=== PATIENT | female | born 1980 | race Caucasian/White ===

== ENCOUNTER 2016-09-22 10:16 | Observation (INO) | payer OTHER ==
[~2016-09-22] VITALS: Ht 167.6 cm; Wt 84.3 kg
[~2016-09-22 10:16] MED LIST: FLEXERIL10 MG PO; NAPROSYN500 MG PO; ULTRAM50 MG PO
[2016-09-22 11:15] LABS: EOSINOPHIL (%) 2.4 % (0-5); EOSINOPHIL COUNT 0.2 K/uL (0-0.3); HEMATOCRIT 45.6 % (36.0-46.0); IMMATURE GRANULOCYTE (%) 0.3 % (0.0-0.7); INSTRUMENT ABS NEUTROPHIL CT 4.3 K/uL; LYMPHOCYTE COUNT 1.7 K/uL (1.0-2.8); MCH 30.4 PG (29.0-34.0); MCHC 33.3 G/DL (30.0-36.0); MCV 91.2 FL (83-99); MEAN PLAT.VOLUME 10.3 uM^3 (9.5-12.4); MONOCYTE COUNT 0.4 K/uL (0-0.8); NEUTROPHIL (%) 65.5 % (45-76); NEUTROPHIL COUNT 4.3 K/uL (1.8-6.4); PLATELET COUNT 267 K/uL (156-360); RBC DIS.WIDTH-CV 12.2 % (11.8-14.6); RBC DIS.WIDTH-SD 40.6 % (39-53); WHITE BLOOD COUNT 6.6 K/uL (4.1-10.2)
[2016-09-22 11:24] LABS: CHLORIDE 109 mEq/L (99-109); POTASSIUM 3.9 mEq/L (3.7-5.4); SODIUM 142 mEq/L (136-147)
[2016-09-22 11:26] LABS: GLUCOSE 83 mg/dL (70-99)
[2016-09-22 11:27] LABS: ANION GAP 13 MEQ/L (2-14); D-DIMER ELISA 0.57 mg/L FEU (< 0.57)
[2016-09-22 11:28] LABS: TOTAL BILIRUBIN 0.4 mg/dL (0.0-1.0)
[2016-09-22 11:29] LABS: ALKALINE PHOSPHATASE 65 IU/L (3-129)
[2016-09-22 11:30] LABS: GFR ESTIMATE (CALCULATED) > 59 mL/min/
[2016-09-22 11:31] LABS: UREA NITROGEN (BUN) 13 mg/dL (9-23)
[2016-09-22 11:35] LABS: TROP-I INTERPRETATION NEGATIVE; TROPONIN-I < 0.01 ng/mL (0.0-0.30)
[2016-09-22 11:41] LABS: QUANTITATIVE HCG < 4.0 MIU/ML
[2016-09-22] MEDS ORDERED: LO LOESTRIN FE1 EACH PO (14:05)
[2016-09-22] MEDS ORDERED: ZYRTEC10 M3 PO (14:05)
[2016-09-22] MEDS ORDERED: AMLODIPINE BES2.5 MG PO (14:05)
[2016-09-22 16:32] VITALS: BP 140/87; BP 143/85
[2016-09-22 16:33] VITALS: BP 142/92
[2016-09-22 17:45] LABS: TROP-I INTERPRETATION NEGATIVE; TROPONIN-I < 0.01 ng/mL (0.0-0.30)
[2016-09-22 18:38] LABS: Estimated Average Glucose 94 mg/dL (70-123); HEMOGLOBIN A1c (GLYCOHEMOGLOB) 4.9 % HGB (Below 5.7)
[2016-09-22 19:18] VITALS: BP 139/91
[2016-09-22 21:16] LABS: ADD MIUA? YES; BILIRUBIN NEGATIVE; BLOOD SMALL; COLOR YELLOW ((YELLOW)); GLUCOSE (STRIP) NEGATIVE; KETONES 20; LEUKOCYTES NEGATIVE; NITRITE NEGATIVE; PROTEIN (STRIP) NEGATIVE; UROBILINOGEN 0.2 MG/DL (0.2-1.0)
[2016-09-22 21:37] LABS: BACTERIA RARE /HPF; EPITHELIAL CELLS RARE /HPF; MUCUS NONE SEEN /LPF; UCUL ADDED? NO; WHITE BLOOD CELLS 0-5 /HPF (0-5)
[2016-09-22 23:00] VITALS: BP 138/89
[2016-09-23] VITALS (8 sets, daily range): BP systolic 123–140; BP diastolic 75–92
[2016-09-23 00:03] LABS: TROP-I INTERPRETATION NEGATIVE; TROPONIN-I < 0.01 ng/mL (0.0-0.30)
[2016-09-23 05:50] LABS: ANION GAP 6 MEQ/L (2-14); CHLORIDE 109 MEQ/L (99-109); GFR ESTIMATE (CALCULATED) > 59 mL/min/; GLUCOSE 84 mg/dL (70-99); POTASSIUM 3.8 MEQ/L (3.7-5.4); SAMPLE HEMOLYSIS CHECK 0; SAMPLE ICTERIC CHECK 0; SAMPLE LIPEMIA CHECK 0; SODIUM 138 MEQ/L (136-147); UREA NITROGEN (BUN) 12 mg/dL (9-23)
[2016-09-23] MEDS ORDERED: ANTIVERT25 MG PO (15:23)
[2016-09-24] VITALS (8 sets, daily range): BP systolic 118–144; BP diastolic 75–92
[2016-09-25 04:00] VITALS: BP 121/81
[2016-09-25 08:47] VITALS: BP 133/87
[2016-09-25 09:04] VITALS: BP 123/83
[2016-09-25] MEDS ORDERED: LOPRESSOR25 MG PO (09:50)
[2016-09-25] MEDS ORDERED: AMITRIPTYLINE H25 MG PO (09:50)
== END 2016-09-25 11:15 | disposition home or self-care (01) ==
LOC: EME 10:16 → EDOF 15:03 → 5WEST 15:03 → EDOF 15:03 → 5WEST 16:12
PROVIDERS: Emergency Medicine; Physician Assistant Medical
DX: R07.89 Other chest pain (principal); R42 Dizziness and giddiness; I10 Essential (primary) hypertension; Z87.891 Personal history of nicotine dependence
CPT/HCPCS: 70551; 71010; 71275; 80048; 80053; 81003; 83036; 84443; 84484; 84702; 85025; 85379; 93005; 93306; 99281; 99285; G0378; J1200; J1650; J1885; J3360; J7030; J7040